=== PATIENT | male | born 1955 | race Hispanic/Latino ===

== ENCOUNTER 2023-01-28 08:50 | Emergency (ER) | payer MEDICARE ==
[~2023-01-28] VITALS: Ht 167.6 cm; Wt 72.6 kg
[2023-01-28] MEDS ORDERED: SODIUM CHLORIDE 0.9% 1000ML 1,000 ML IV STA ×2 (09:04→11:02)
[2023-01-28] MEDS ORDERED: ONDANSETRON HCL INJ 2MG/ML 2ML 2 MG/ML VIAL IV STA (09:04)
[2023-01-28 09:24] LABS: BASOPHILS % 0.2 % (0.0-1.0); HEMATOCRIT 37.3 % (38.2-49.6); HEMOGLOBIN 13.5 g/dL (14.0-18.0); LYMPHOCYTES # (AUTO) 0.6 (1.0-3.2); LYMPHOCYTES % 4.5 % (18.0-39.1); MEAN CORPUSCULAR HEMOGLOBIN 33.7 pg (28-32); MEAN CORPUSCULAR HGB CONC 36.2 g/dL (31-35); MONOCYTES # (AUTO) 0.3 (0.2-0.8); MONOCYTES % 2.4 % (4.4-11.3); NEUTROPHILS # (AUTO) 11.3 (2.1-6.9); NEUTROPHILS % 91.9 % (38.7-80.0); PLATELET COUNT 127 x10e3/uL (140-360); RED BLOOD COUNT 4.01 x10e6/uL (4.3-5.7); RED CELL DISTRIBUTION WIDTH 12.9 % (11.7-14.4); WHITE BLOOD COUNT 12.26 x10e3/uL (4.8-10.8)
[2023-01-28 09:29] LABS: INR 1.05; PROTHROMBIN TIME 14.3 seconds (11.9-14.5)
[2023-01-28 09:30] LABS: PARTIAL THROMBOPLASTIN TIME 54.8 seconds (23.8-35.5)
[2023-01-28] MEDS ORDERED: ACETAMINOPHEN 325 MG TAB ONE (09:34)
[2023-01-28] MEDS ORDERED: IBUPROFEN 600 MG TAB ONE (09:34)
[2023-01-28 09:40] LABS: CLARITY,URINE CLOUDY (CLEAR); COLOR,URINE YELLOW (YELLOW); KETONES,URINE 1+ (NEGATIVE); LEUKOCYTE ESTERASE ,URINE NEGATIVE (NEGATIVE); NITRITE,URINE NEGATIVE (NEGATIVE); PROTEIN,URINE DIPSTICK >=300 (NEGATIVE)
[2023-01-28 09:40] LABS: ALBUMIN 2.6 g/dL (3.5-5.0); ALBUMIN/GLOBULIN RATIO 0.5 (0.8-2.0); ANION GAP 17.4 mmol/L (8-16); CALCIUM 9.4 mg/dL (8.4-10.2); CREATININE, SERUM 2.05 mg/dL (0.72-1.25); MAGNESIUM 2.2 MG/DL (1.3-2.1); POTASSIUM 3.4 mmol/L (3.5-5.1)
[2023-01-28] MEDS ORDERED: IBUPROFEN 600 MG TAB PO STA (09:40)
[2023-01-28 09:41] LABS: URINE UROBILINOGEN 4 mg/dL (0.2 - 1)
[2023-01-28] MEDS ORDERED: LEVALBUTEROL HCL SOLN NEBU 1.25 MG/3 ML NEB INH ONE (09:45)
[2023-01-28] MEDS ORDERED: IPRATROPIUM BROMIDE 0.02% 2.5 ML NEB NEB ONE (09:45)
[2023-01-28 09:53] LABS: B-TYPE NATRIURETIC PEPTIDE2 280.8 pg/mL (0-100)
[2023-01-28 09:58] LABS: BACTERIA,URINE FEW /HPF; EPITHELIAL CELLS,URINE FEW /LPF; WBC,URINE (MAN) 0-5 /HPF (0-5)
[2023-01-28 10:07] VITALS: PULSE 92; RESP 22
[2023-01-28 10:08] LABS: ABG PCO2 22 mmHg (35-45); ABG PH 7.47 (7.35-7.45)
[2023-01-28 10:09] LABS: ABG HCO3 16 mmol/L (22-26); ABG PO2 61 mmHg (80-105); ABG TCO2 17
[2023-01-28] MEDS ORDERED: ACETAMINOPHEN 325 MG TAB PO ONE (10:30)
[2023-01-28] MEDS ORDERED: POTASSIUM CHLORIDE 20 MEQ TAB CR PO STA (10:57)
[2023-01-28 12:19] VITALS: O2SAT 100
== END 2023-01-28 12:25 | disposition other institution (70) ==
LOC: ER 08:55
DX: R50.9 Fever, unspecified (principal); R65.20 Severe sepsis without septic shock; J18.8 Other pneumonia, unspecified organism; K72.90 Hepatic failure, unspecified without coma; I49.3 Ventricular premature depolarization; I47.29 Other ventricular tachycardia; K83.09 Other cholangitis; E87.1 Hypo-osmolality and hyponatremia; N28.9 Disorder of kidney and ureter, unspecified; Z20.822 Contact with and (suspected) exposure to COVID-19; I10 Essential (primary) hypertension; E78.5 Hyperlipidemia, unspecified; I25.10 Atherosclerotic heart disease of native coronary artery without angina pectoris; R94.31 Abnormal electrocardiogram [ECG] [EKG]; I25.2 Old myocardial infarction; Z95.1 Presence of aortocoronary bypass graft; F17.210 Nicotine dependence, cigarettes, uncomplicated
CPT/HCPCS: 36415; 36600; 70450; 71045; 71250; 74176; 76705; 80053; 81001; 82550; 82805; 83605; 83690; 83735; 83880; 84484; 85025; 85379; 85384; 85610; 85730; 87040; 87086; 87400; 93005; 99285; C9113; J0456; J0696; J2543; J7030; J7050; U0002